=== PATIENT | male | born 1965 | race Caucasian/White ===

== ENCOUNTER 2018-07-27 13:40 | Observation (INO) ==
[2018-07-27 14:23] LABS: Microscopic, Urine URINE MICROSCOPIC (MICROSCOPIC)
[2018-07-27 15:12] LABS: Basophils % 0.4 % (0.1-2.0); Eosinophils % 0.1 % (0.1-12.0); Hematocrit 52.6 % (42.0-52.0); Hemoglobin 17.7 g/dL (14.1-18.0); Lymphocytes # 1.1 K/mm3 (0.7-4.5); Lymphocytes % 15.4 % (10-50); Mean Corpuscular HGB Conc 33.6 g/dL (31.8-35.4); Mean Corpuscular Hemoglobin 29.3 pg (27.0-31.2); Mean Corpuscular Volume 87.2 fl (80-94); Mean Platelet Volume 7.5 fl (7.4-10.4); Monocytes # 0.4 K/mm3 (0.1-1.0); Monocytes % 5.1 % (1.7-9.3); Neutrophils # 5.6 K/mm3 (1.8-7.8); Neutrophils % 78.9 % (37.0-80.0); Platelet Count 258 K/mm3 (142-424); Red Blood Count 6.03 M/mm3 (4.60-6.20); Red Cell Distribution Width 13.9 % (11.5-17.5); White Blood Count 7.1 K/mm3 (4.8-10.8)
[2018-07-27 15:13] LABS: Appearance,Urine CLEAR (Clear); Blood, Urine TRACE-L (Negative); Color,Urine DK YELLOW (Yellow); Glucose,Urine (UA) Negative (Negative); Ketones,Urine TRACE (Negative); Leukocyte Esterase,Urine Negative (Negative); Protein,Urine 2+ (Negative); Specific Gravity, Urine 1.025 (1.005-1.030)
[2018-07-27 15:24] LABS: Alanine Aminotransferase 247 U/L (12-78); Albumin/Globulin Ratio 0.6 (1.1-1.8); Alkaline Phosphatase 296 U/L (46-116); Amylase 47 U/L (25-115); Anion Gap 13.1 mEq/L (5-15); Aspartate Amino Transferase 155 U/L (15-37); Blood Urea Nitrogen 10 mg/dL (7-18); Calcium 8.7 mg/dL (8.5-10.1); Carbon Dioxide 27 mmol/L (21.0-32.0); Chloride 98 mmol/L (98-107); Glucose 98 mg/dL (74-106); Lipase 118 u/L (73-393); Potassium 3.1 mmoL/L (3.5-5.1); Sodium 135 mmol/L (136-145)
[2018-07-27 15:28] LABS: Bilirubin,Urine Negative (Negative)
[2018-07-27 15:30] LABS: Bacteria,Urine Trace /lpf; RBC,Urine Occasional #/hpf (0-3); Squamous Epithelial Cell,Urine Occasional #/hpf (0-5)
[2018-07-27 17:36] LABS: INR 1.04 (0.9-1.1); Prothrombin Time 10.7 seconds (9.4-11.8)
--- NOTE | 2018-07-27 21:31 | History & Physical Report ---
*Admission Date: 07/27/18 *Chief complaint: fever, chills, right-sided abdominal pain *History of present illness: 52 yr old male presented to outpatient clinic today with complaints of fever, body aches, chills and right upper abdominal pain for approximately 4 days. Poor appetite and mild nausea but no vomiting, diarrhea, constipation or urinary symptoms. Denies respiratory symptoms but was concerned about possible influenza. Rapid influenza testing was negative but he was clammy, tachycardic and had right upper and mid-abdominal pain so was sent for gallbaldder US and labs. Labs revealed transaminitis, mild hyponatremia and hypokalemia, US with gallbladder wall thickening and sludge. Admitted for IV hydration, additional testing and possible surgical consultation. [facility] History I have reviewed the patient's past medical history: Yes Medical History: Reports:: Anxiety, Depression, Gall Bladder Disease (known sludge in the past), Hyperlipidemia Denies:: Cancer, Diabetes Mellitus Type 1, Diabetes Mellitus Type 2, MRSA *Have you ever received a pneumonia vaccine?: No *Have you received a flu vaccine this season?: No Other Medical History: Reports: Cataracts Other Surgeries: Yes: Other (bone cyst) Amputation: No Fractures: No - *Social History Educational Level: Attended [employer] Smoking Status: Never smoker Alcohol Intake: never *Occupational Status:: employed Housing: house Household Members: spouse, children *Travel in the last 8 weeks: None - Psychiatric History Expresses thoughts of harming self/others: None Suicide Plan Description: No Plan Pschychiatric History:: Reports:: Anxiety (controlled on paxil), Depression Family Hx:: Coronary Artery Disease, Heart Attack, Hyperlipidemia, Hypertension, Stroke, Thyroid Disorder, Tuberculosis Review of Systems - Review of Systems Review of systems:: pertinent systems reviewed and negative unless documented below - Constitutional Reports anorexia, Reports body ache(s), Reports chills, Reports fever(s) - Eyes Denies change in vision - ENT Denies difficulty swallowing, Denies ear pain, Denies sinus pressure, Denies sore throat - *Cardiovascular Denies chest pain, Denies shortness of breath - *Respiratory Denies cough - *Gastrointestinal Reports abdominal pain, Reports belching, Reports nausea, Denies change in bowel habits, Denies constipation, Denies loose stools, Denies heartburn, Denies vomiting blood, Denies vomiting - *Genitourinary Denies difficulty urinating - *Musculoskeletal Reports joint pain - Integumentary/Breasts Denies rash - *Neurologic Denies dizziness, Denies localized weakness, Denies frequent falls - Psychiatric Reports depression (controlled on medication) - Endocrine Denies cold intolerance - Hematologic/Lymphatic Denies easy bleeding Meds Home Medications Medication Instructions Recorded Confirmed Type Cholecalciferol (Vitamin D3) 50,000 unit PO MOFR 07/28/18 07/28/18 History [Vitamin D3 50,000 unit Cap] Loratadine [Allergy] 10 mg PO DAILY 07/28/18 07/28/18 History Niacin [Niacin ER] 1,000 mg PO DAILY 07/28/18 07/28/18 History PARoxetine HCl [Paxil] 20 mg PO DAILY 07/28/18 07/28/18 History Allergies Allergy/AdvReac Type Severity Reaction Status Date / Time Penicillins AdvReac Verified 07/27/18 18:43 Exam Vital signs and Labs for Last 24 Hours: Temp Pulse Resp BP Pulse Ox 98.5 F 108 H 18 140/79 94 L 07/27/18 20:00 07/27/18 20:00 07/27/18 20:00 07/27/18 20:00 07/27/18 20:00 Laboratory Results - last 24 hr 07/27/18 14:21: Sodium 135 L, Potassium 3.1 L, Chloride 98, Carbon Dioxide 27, Anion Gap 13.1, BUN 10, Creatinine 1.15, Estimated GFR 66, Est GFR ( Amer) 80, Glucose 98, Calcium 8.7, Total Bilirubin 1.0, AST 155 H, ALT 247 H, Alkaline Phosphatase 296 H, Total Protein 8.0, Albumin 3.0 L, Globulin 5.0 H, Albumin/Globulin Ratio 0.6 L, Amylase 47, Lipase 118 07/27/18 14:21: WBC 7.1, RBC 6.03, Hgb 17.7, Hct 52.6 H, MCV 87.2, MCH 29.3, MCHC 33.6, RDW 13.9, Plt Count 258, MPV 7.5, Neut % (Auto) 78.9, Lymph % (Auto) 15.4, [place] % (Auto) 5.1, Eos % (Auto) 0.1, Baso % (Auto) 0.4, Neut # (Auto) 5.6, Lymph # (Auto) 1.1, [place] # (Auto) 0.4, Eos # (Auto) 0.0, Baso # (Auto) 0.0 07/27/18 14:21: Urine Color Dk yellow, Urine Appearance Clear, Urine pH 6.0, Ur Specific [place] 1.025, Urine Protein 2+, Urine Glucose (UA) Negative, Urine Ketones Trace, Urine Blood Trace-l, Urine Nitrate Negative, Urine Bilirubin Negative, Urine Urobilinogen 1.0, Ur Leukocyte Esterase Negative, Urine RBC Occasional, Urine WBC 3-5, Ur Squamous Epith Cells Occasional, Urine Bacteria Trace 07/27/18 16:27: PT 10.7, INR 1.04 I & O for Last 24 hours: Intake & Output 07/25/18 07/26/18 07/27/18 07/28/18 11:59 11:59 11:59 11:59 Weight 208 lb 8 oz - Constitutional mild distress, diaphoretic, cooperative - *Routine HEENT Exam Head: Present: normocephalic Eye: Present: conjunctivae pink ENT: Present: mucous membranes moist, oropharynx clear, nares patent, TM's clear bilaterally - *Routine Neck Exam Present: supple. Absent: lymphadenopathy - *Routine Respiratory Exam Present: CTA bilaterally - *Routine Cardiovascular Exam Present: RRR. Absent: murmur - *Routine Abdominal Exam Present: soft, normoactive bowel sounds, tenderness (right upper and mid- abdomen). Absent: rebound, guarding, mass - *Routine Extremities Exam Present: full ROM, normal capillary refill. Absent: edema - *Routine Skin Exam Present: warm. Absent: rash - *Routine Neurological Exam Present: oriented X3, moving all extremities Assessment and Plan (1) Transaminitis Current visit: Yes Status: Acute Category: Medical Code(s): R74.0 - Nonspecific elevation of levels of transaminase and lactic acid dehydrogenase [LDH] (2) Hypokalemia Current visit: Yes Status: Acute Category: Medical Code(s): E87.6 - Hypokalemia (3) Hyponatremia Current visit: Yes Status: Acute Category: Medical Code(s): E87.1 - Hypo-osmolality and hyponatremia (4) Febrile illness, acute Current visit: Yes Status: Acute Category: Medical Code(s): R50.9 - Fever, unspecified - Assessment and plan all Dx Assessment and Plan for all problems:: suspect acute cholecystitis but waiting on CT imaging to rule-out other possible pathology. Plan to consult general surgery, IV Invanz every 24 hours, blood cultures pending. Hepatitis A and chronic hepaitis panel also pending. IV hydration with replacement of potassium overnight.
[2018-07-28 06:37] LABS: Albumin Level 2.6 gm/dL (3.4-5.0); Albumin/Globulin Ratio 0.6 (1.1-1.8); Anion Gap 14.5 mEq/L (5-15); Bilirubin,Total 0.7 mg/dL (0.2-1.0); Calcium 8.5 mg/dL (8.5-10.1); Chol/HDL Ratio 7.1 (1-3.5); Globulin 4.6 gm/dl (1.3-3.2); Potassium 3.5 mmoL/L (3.5-5.1); Total Protein,Serum 7.2 gm/dL (6.4-8.2)
[2018-07-28 07:11] LABS: Basophils % 0.1 % (0.1-2.0); Eosinophils % 0.1 % (0.1-12.0); Hematocrit 48.3 % (42.0-52.0); Lymphocytes # 0.9 K/mm3 (0.7-4.5); Lymphocytes % 14.2 % (10-50); Mean Corpuscular HGB Conc 32.8 g/dL (31.8-35.4); Mean Corpuscular Hemoglobin 29.4 pg (27.0-31.2); Mean Corpuscular Volume 89.8 fl (80-94); Mean Platelet Volume 8.2 fl (7.4-10.4); Monocytes # 0.4 K/mm3 (0.1-1.0); Neutrophils # 4.8 K/mm3 (1.8-7.8); Neutrophils % 78.6 % (37.0-80.0); Platelet Count 221 K/mm3 (142-424); Red Blood Count 5.38 M/mm3 (4.60-6.20); Red Cell Distribution Width 13.7 % (11.5-17.5)
[2018-07-28 07:22] LABS: Hemoglobin 15.8 g/dL (14.1-18.0)
--- NOTE | 2018-07-28 07:38 | Pharmacy Consult Notes ---
[facility] Pharmacy VTE Monitoring - Patient Demographics Admission date: 07/27/18 Report Date: 07/28/18 Time: 07:38 Allergies/Adverse Reactions: Patient Allergies Penicillins Adverse Reaction (Verified 07/27/18 18:43) Height: 1.83 m Weight: 94.574 kg Patient Problems: Current Active Problems Transaminitis (Acute) Hypokalemia (Acute) Hyponatremia (Acute) Febrile illness, acute (Acute) - VTE Risk Labs: VTE Related Lab Results Hgb 15.8 g/dL (14.1-18.0) D 07/28/18 06:05 Hct 48.3 % (42.0-52.0) 07/28/18 06:05 Plt Count 221 K/mm3 (142-424) 07/28/18 06:05 PT 10.7 seconds (9.4-11.8) 07/27/18 16:27 INR 1.04 (0.9-1.1) 07/27/18 16:27 BUN 9 mg/dL (7-18) 07/28/18 06:05 Creatinine 1.01 mg/dL (0.70-1.30) 07/28/18 06:05 Estimated Creat Clear 112 mL/min (50-200) 07/28/18 06:05 Was VTE Risk Assessment Performed: Yes VTE Score: 1 VTE Risk Level: Very Low Risk - Prophylaxis VTE Prophylaxis Ordered?: Yes Types of VTE Prophylaxis: TEDS Knee High Location of Applied Device: Bilateral Lower Extremeties - VTE Diagnosis Confirmed Treatment or plan recommended: Continue Current Treatment
--- NOTE | 2018-07-28 09:25 | Progress Note ---
Internal Medicine - PN: Subj *Date: 07/28/18 *Time: 08:00 Interval history: Patient is sitting up in bed, abdominal pain as improved. No vomiting through the night, has had multiple episodes of diarrhea. Alert and oriented x3. S1, S2, no murmur. Lung sounds clear and equal. Abdomen, soft, mild distended with RLQ tenderness, no rebound or guarding. No LE edema Exam Vital signs and Labs for Last 24 Hours: Temp Pulse Resp BP Pulse Ox 98.7 F 109 H 18 141/90 H 94 L 07/28/18 07:49 07/28/18 07:49 07/28/18 07:49 07/28/18 07:49 07/28/18 07:49 Laboratory Results - last 24 hr 07/27/18 14:21: Sodium 135 L, Potassium 3.1 L, Chloride 98, Carbon Dioxide 27, Anion Gap 13.1, BUN 10, Creatinine 1.15, Estimated GFR 66, Est GFR ( Amer) 80, Glucose 98, Calcium 8.7, Total Bilirubin 1.0, AST 155 H, ALT 247 H, Alkaline Phosphatase 296 H, Total Protein 8.0, Albumin 3.0 L, Globulin 5.0 H, Albumin/Globulin Ratio 0.6 L, Amylase 47, Lipase 118 07/27/18 14:21: WBC 7.1, RBC 6.03, Hgb 17.7, Hct 52.6 H, MCV 87.2, MCH 29.3, MCHC 33.6, RDW 13.9, Plt Count 258, MPV 7.5, Neut % (Auto) 78.9, Lymph % (Auto) 15.4, [place] % (Auto) 5.1, Eos % (Auto) 0.1, Baso % (Auto) 0.4, Neut # (Auto) 5.6, Lymph # (Auto) 1.1, [place] # (Auto) 0.4, Eos # (Auto) 0.0, Baso # (Auto) 0.0 07/27/18 14:21: Urine Color Dk yellow, Urine Appearance Clear, Urine pH 6.0, Ur Specific [place] 1.025, Urine Protein 2+, Urine Glucose (UA) Negative, Urine Ketones Trace, Urine Blood Trace-l, Urine Nitrate Negative, Urine Bilirubin Negative, Urine Urobilinogen 1.0, Ur Leukocyte Esterase Negative, Urine RBC Occasional, Urine WBC 3-5, Ur Squamous Epith Cells Occasional, Urine Bacteria Trace 07/27/18 16:27: PT 10.7, INR 1.04 07/28/18 06:05: WBC 6.0, RBC 5.38, Hgb 15.8 D, Hct 48.3, MCV 89.8, MCH 29.4, MCHC 32.8, RDW 13.7, Plt Count 221, MPV 8.2, Neut % (Auto) 78.6, Lymph % (Auto) 14.2, [place] % (Auto) 7.0, Eos % (Auto) 0.1, Baso % (Auto) 0.1, Neut # (Auto) 4.8, Lymph # (Auto) 0.9, [place] # (Auto) 0.4, Eos # (Auto) 0.0, Baso # (Auto) 0.0 07/28/18 06:05: Sodium 135 L, Potassium 3.5, Chloride 99, Carbon Dioxide 25, Anion Gap 14.5, BUN 9, Creatinine 1.01, Estimated Creat Clear 112, Estimated GFR 77, Est GFR ( Amer) 93, Glucose 136 H D, Calcium 8.5, Total Bilirubin 0.7, AST 107 H D, ALT 203 H, Alkaline Phosphatase 276 H, Total Protein 7.2, Albumin 2.6 L D, Globulin 4.6 H, Albumin/Globulin Ratio 0.6 L, Triglycerides 213 H, Cholesterol 226 H, LDL Cholesterol 151 H, VLDL Cholesterol 43 H, HDL Cholesterol 32, Cholesterol/HDL Ratio 7.1 H I & O for Last 24 hours: Intake & Output 07/25/18 07/26/18 07/27/18 07/28/18 11:59 11:59 11:59 11:59 Intake Total 1193 / 1193 Balance 1193 / 1193 Weight 208 lb 8 oz Assessment and Plan (1) Transaminitis Current visit: Yes Status: Acute Category: Medical Code(s): R74.0 - Nonspecific elevation of levels of transaminase and lactic acid dehydrogenase [LDH] (2) Hypokalemia Current visit: Yes Status: Acute Category: Medical Code(s): E87.6 - Hypokalemia (3) Hyponatremia Current visit: Yes Status: Acute Category: Medical Code(s): E87.1 - Hypo- osmolality and hyponatremia (4) Febrile illness, acute Current visit: Yes Status: Acute Category: Medical Code(s): R50.9 - Fever, unspecified (5) Colitis Current visit: Yes Status: Acute Category: Medical Code(s): K52.9 - Noninfective gastroenteritis and colitis, unspecified - Assessment and plan all Dx Assessment and Plan for all problems:: Transaminitis is improving. CT showed colitis which is more consistent with his symptoms today. Add flagyl. Obtain diarrhea PCR. Consult surgery
--- NOTE | 2018-07-28 14:05 | Consult Report ---
*Admission Date: 07/27/18 *History of present illness: This is a 52-year-old gentleman seen in consultation from his primary service fo r evaluation regarding possible cholecystitis. Please see HPI from admission H&P forwarded below: 52 yr old male presented to outpatient clinic today with complaints of fever, body aches, chills and right upper abdominal pain for approximately 4 days. Poor appetite and mild nausea but no vomiting, diarrhea, constipation or urinary symptoms. Denies respiratory symptoms but was concerned about possible influenza. Rapid influenza testing was negative but he was clammy, tachycardic and had right upper and mid-abdominal pain so was sent for gallbaldder US and labs. Labs revealed transaminitis, mild hyponatremia and hypokalemia, US with gallbladder wall thickening and sludge. Admitted for IV hydration, additional testing and possible surgical consultation. Note: Currently, the patient feels better. Diarrhea panel reveals Campylobacter. He states that his pain was somewhat in the mid and upper abdomen (R>L). He also states that he did have some pain in the right lower quadrant. Review of Systems - Constitutional Denies chills - Eyes Denies change in vision - *Cardiovascular Denies chest pain - *Respiratory Denies cough - *Gastrointestinal Reports abdominal pain, Reports change in stools, Denies vomiting blood, Denies bright, red blood in stools - *Neurologic Denies dizziness, Denies localized weakness, Denies frequent falls [facility] History Medical History: Reports:: Anxiety (controlled on paxil), Depression, Gall Bladder Disease (known sludge in the past), Hyperlipidemia Denies:: Cancer, Diabetes Mellitus Type 1, Diabetes Mellitus Type 2, MRSA *Have you ever received a pneumonia vaccine?: No *Have you received a flu vaccine this season?: No Other Medical History: Reports: Cataracts Other Surgeries: Yes: Other (bone cyst) Amputation: No Fractures: No - *Social History Educational Level: Attended [employer] Smoking Status: Never smoker Alcohol Intake: never *Occupational Status:: employed Housing: house Household Members: spouse, children *Travel in the last 8 weeks: None - Psychiatric History Expresses thoughts of harming self/others: None Suicide Plan Description: No Plan Pschychiatric History:: Reports:: Anxiety (controlled on paxil), Depression Family Hx:: Coronary Artery Disease, Heart Attack, Hyperlipidemia, Hypertension, Stroke, Thyroid Disorder, Tuberculosis Meds Home Medications Medication Instructions Recorded Confirmed Type Cholecalciferol (Vitamin D3) 50,000 unit PO MOFR 07/28/18 07/28/18 History [Vitamin D3 50,000 unit Cap] Loratadine [Allergy] 10 mg PO DAILY 07/28/18 07/28/18 History Niacin [Niacin ER] 1,000 mg PO DAILY 07/28/18 07/28/18 History PARoxetine HCl [Paxil] 20 mg PO DAILY 07/28/18 07/28/18 History Allergies Allergy/AdvReac Type Severity Reaction Status Date / Time Penicillins AdvReac Verified 07/27/18 18:43 Exam Vital signs and Labs for Last 24 Hours: Temp Pulse Resp BP Pulse Ox 98.7 F 109 H 18 141/90 H 94 L 07/28/18 07:49 07/28/18 07:49 07/28/18 07:49 07/28/18 07:49 07/28/18 07:49 Laboratory Results - last 24 hr 07/27/18 14:21: Sodium 135 L, Potassium 3.1 L, Chloride 98, Carbon Dioxide 27, Anion Gap 13.1, BUN 10, Creatinine 1.15, Estimated GFR 66, Est GFR ( Amer) 80, Glucose 98, Calcium 8.7, Total Bilirubin 1.0, AST 155 H, ALT 247 H, Alkaline Phosphatase 296 H, Total Protein 8.0, Albumin 3.0 L, Globulin 5.0 H, Albumin/Globulin Ratio 0.6 L, Amylase 47, Lipase 118 07/27/18 14:21: WBC 7.1, RBC 6.03, Hgb 17.7, Hct 52.6 H, MCV 87.2, MCH 29.3, MCHC 33.6, RDW 13.9, Plt Count 258, MPV 7.5, Neut % (Auto) 78.9, Lymph % (Auto) 15.4, [place] % (Auto) 5.1, Eos % (Auto) 0.1, Baso % (Auto) 0.4, Neut # (Auto) 5.6, Lymph # (Auto) 1.1, [place] # (Auto) 0.4, Eos # (Auto) 0.0, Baso # (Auto) 0.0 07/27/18 14:21: Urine Color Dk yellow, Urine Appearance Clear, Urine pH 6.0, Ur Specific [place] 1.025, Urine Protein 2+, Urine Glucose (UA) Negative, Urine Ketones Trace, Urine Blood Trace-l, Urine Nitrate Negative, Urine Bilirubin Negative, Urine Urobilinogen 1.0, Ur Leukocyte Esterase Negative, Urine RBC Occ asional, Urine WBC 3-5, Ur Squamous Epith Cells Occasional, Urine Bacteria Trace 07/27/18 16:27: PT 10.7, INR 1.04 07/28/18 06:05: WBC 6.0, RBC 5.38, Hgb 15.8 D, Hct 48.3, MCV 89.8, MCH 29.4, MCHC 32.8, RDW 13.7, Plt Count 221, MPV 8.2, Neut % (Auto) 78.6, Lymph % (Auto) 14.2, [place] % (Auto) 7.0, Eos % (Auto) 0.1, Baso % (Auto) 0.1, Neut # (Auto) 4.8, Lymph # (Auto) 0.9, [place] # (Auto) 0.4, Eos # (Auto) 0.0, Baso # (Auto) 0.0 07/28/18 06:05: Sodium 135 L, Potassium 3.5, Chloride 99, Carbon Dioxide 25, Anion Gap 14.5, BUN 9, Creatinine 1.01, Estimated Creat Clear 112, Estimated GFR 77, Est GFR ( Amer) 93, Glucose 136 H D, Calcium 8.5, Total Bilirubin 0.7, AST 107 H D, ALT 203 H, Alkaline Phosphatase 276 H, Total Protein 7.2, Albumin 2.6 L D, Globulin 4.6 H, Albumin/Globulin Ratio 0.6 L, Triglycerides 213 H, Cholesterol 226 H, LDL Cholesterol 151 H, VLDL Cholesterol 43 H, HDL Cholesterol 32, Cholesterol/HDL Ratio 7.1 H 07/28/18 09:00: Stl Aeromonas (PCR) Not detected, Stl C. cayetanensis PCR Not detected, Stool Rotavirus (PCR) Not detected, Stl Adenov F 40/41 PCR Not detected, Stool Astrovirus (PCR) Not detected, Stool Campylobacter PCR Detected A, Stl C.difficile Tox PCR Not detected, Stool Cryptosporidium PCR Not detected, Stl E.coli Shiga Tox PCR Not detected, Stool E coli O157 PCR Not detected, Stl Enterotoxigenic E PCR Not detected, Stool EPEC (PCR) Not detected, Stool EAEC (PCR) Not detected, Stl E. histolytica PCR Not detected, Stool Giardia Lamblia PCR Not detected, Stool Salmonella PCR Not detected, Stool Sapovirus (PCR) Not detected, Stl P. shigelloides PCR Not detected, Stl Shigella/EIEC PCR Not detected, St Y.enterocolitica PCR Not detected, Stool Vibrio (PCR) Not detected, Stl Vibrio cholerae PCR Not detected, Stl Norovirus GI/GII PCR Not detected I & O for Last 24 hours: Intake & Output 07/26/18 07/27/18 07/28/18 07/29/18 11:59 11:59 11:59 11:59 Intake Total 1193 / 1193 Balance 1193 / 1193 Weight 208 lb 8 oz Radiology Reports for the Last 24 Hours: The patient's CT scan reveals changes consistent with colitis of the cecum/ascending colon. - Constitutional no acute distress - *Routine Respiratory Exam Absent: respiratory distress - *Routine Abdominal Exam Present: soft, tenderness Comments: mildly tender thoughout mid and upper abdomen Results - Labs 07/28/18 06:05 07/28/18 06:05 Laboratory Results - last 24 hr 07/27/18 14:21: Sodium 135 L, Potassium 3.1 L, Chloride 98, Carbon Dioxide 27, Anion Gap 13.1, BUN 10, Creatinine 1.15, Estimated GFR 66, Est GFR ( Amer) 80, Glucose 98, Calcium 8.7, Total Bilirubin 1.0, AST 155 H, ALT 247 H, Alkaline Phosphatase 296 H, Total Protein 8.0, Albumin 3.0 L, Globulin 5.0 H, Albumin/Globulin Ratio 0.6 L, Amylase 47, Lipase 118 07/27/18 14:21: WBC 7.1, RBC 6.03, Hgb 17.7, Hct 52.6 H, MCV 87.2, MCH 29.3, MCHC 33.6, RDW 13.9, Plt Count 258, MPV 7.5, Neut % (Auto) 78.9, Lymph % (Auto) 15.4, [place] % (Auto) 5.1, Eos % (Auto) 0.1, Baso % (Auto) 0.4, Neut # (Auto) 5.6, Lymph # (Auto) 1.1, [place] # (Auto) 0.4, Eos # (Auto) 0.0, Baso # (Auto) 0.0 07/27/18 14:21: Urine Color Dk yellow, Urine Appearance Clear, Urine pH 6.0, Ur Specific [place] 1.025, Urine Protein 2+, Urine Glucose (UA) Negative, Urine Ketones Trace, Urine Blood Trace-l, Urine Nitrate Negative, Urine Bilirubin Negative, Urine Urobilinogen 1.0, Ur Leukocyte Esterase Negative, Urine RBC Occasional, Urine WBC 3-5, Ur Squamous Epith Cells Occasional, Urine Bacteria Trace 07/27/18 16:27: PT 10.7, INR 1.04 07/28/18 06:05: WBC 6.0, RBC 5.38, Hgb 15.8 D, Hct 48.3, MCV 89.8, MCH 29.4, MCHC 32.8, RDW 13.7, Plt Count 221, MPV 8.2, Neut % (Auto) 78.6, Lymph % (Auto) 14.2, [place] % (Auto) 7.0, Eos % (Auto) 0.1, Baso % (Auto) 0.1, Neut # (Auto) 4.8, Lymph # (Auto) 0.9, [place] # (Auto) 0.4, Eos # (Auto) 0.0, Baso # (Auto) 0.0 07/28/18 06:05: Sodium 135 L, Potassium 3.5, Chloride 99, Carbon Dioxide 25, Anion Gap 14.5, BUN 9, Creatinine 1.01, Estimated Creat Clear 112, Estimated GFR 77, Est GFR ( Amer) 93, Glucose 136 H D, Calcium 8.5, Total Bilirubin 0.7, AST 107 H D, ALT 203 H, Alkaline Phosphatase 276 H, Total Protein 7.2, Albumin 2.6 L D, Globulin 4.6 H, Albumin/Globulin Ratio 0.6 L, Triglycerides 213 H, Cholesterol 226 H, LDL Cholesterol 151 H, VLDL Cholesterol 43 H, HDL Cholesterol 32, Cholesterol/HDL Ratio 7.1 H 07/28/18 09:00: Stl Aeromonas (PCR) Not detected, Stl C. cayetanensis PCR Not detected, Stool Rotavirus (PCR) Not detected, Stl Adenov F 40/41 PCR Not detected, Stool Astrovirus (PCR) Not detected, Stool Campylobacter PCR Detected A, Stl C.difficile Tox PCR Not detected, Stool Cryptosporidium PCR Not detected, Stl E.coli Shiga Tox PCR Not detected, Stool E coli O157 PCR Not detected, Stl Enterotoxigenic E PCR Not detected, Stool EPEC (PCR) Not detected, Stool EAEC (PCR) Not detected, Stl E. histolytica PCR Not detected, Stool Giardia [place]lia PCR Not detected, Stool Salmonella PCR Not detected, Stool Sapovirus (PCR) Not detected, Stl P. shigelloides PCR Not detected, Stl Shigella/EIEC PCR Not detected, St Y.enterocolitica PCR Not detected, Stool Vibrio (PCR) Not detected, Stl Vibrio cholerae PCR Not detected, Stl Norovirus GI/GII PCR Not detected - Imaging CT scan - abdomen: report reviewed, image reviewed CT scan - pelvis: report reviewed, image reviewed US - abdomen: report reviewed, image reviewed Assessment and Plan (1) Transaminitis Current visit: Yes Status: Acute Category: Medical Code(s): R74.0 - Nonspecific elevation of levels of transaminase and lactic acid dehydrogenase [LDH] (2) Hypokalemia Current visit: Yes Status: Acute Category: Medical Code(s): E87.6 - Hypokalemia (3) Hyponatremia Current visit: Yes Status: Acute Category: Medical Code(s): E87.1 - Hypo- osmolality and hyponatremia (4) Febrile illness, acute Current visit: Yes Status: Acute Category: Medical Code(s): R50.9 - Fever, unspecified (5) Colitis Current visit: Yes Status: Acute Category: Medical Code(s): K52.9 - Nonin fective gastroenteritis and colitis, unspecified Continue treatment as per primary service. (6) Abnormal ultrasound of abdomen Current visit: Yes Status: Acute Category: Medical Code(s): R93.5 - Abnormal findings on diagnostic imaging of other abdominal regions, including retroperitoneum The findings of mild gallbladder wall thickening and possible "small sludge" are most likely not indicative of acute biliary disease. Secondary inflammatory response from (proximity) right-sided colitis is seemingly more likely.
[2018-07-29 10:15] LABS: Hepatitis B Core Antibody IgM Negative (Negative); Hepatitis B Surface Antigen Negative (Negative)
--- NOTE | 2018-07-29 10:34 | Discharge Summary ---
General - General Admission date:: 07/27/18 Discharge date: 07/29/18 HPI HPI: 52 yr old male presented to outpatient clinic today with complaints of fever, body aches, chills and right upper abdominal pain for approximately 4 days. Poor appetite and mild nausea but no vomiting, diarrhea, constipation or urinary symptoms. Denies respiratory symptoms but was concerned about possible influenza. Rapid influenza testing was negative but he was clammy, tachycardic and had right upper and mid-abdominal pain so was sent for gallbaldder US and labs. Labs revealed transaminitis, mild hyponatremia and hypokalemia, US with gallbladder wall thickening and sludge. Admitted for IV hydration, additional testing and possible surgical consultation. Hospital Course Hospital Course: Patient admitted to medicine due to concern for cholecystitis. Abdominal U/S performed with no stones, biliary dilitation, or vargas sign. Pain progressed overnight with evolution to right lower quadrant pain. Surgery evaluated and determined no emergent need for cholecystectomy as Sx not from gall stone disease. Initiated on Abx and stool sample obtained due to development of diarrhea. Found to be positive for C. jejuni. Advanced diet and tolerated well. Patient clinically improved. Treated for gastroenteritis. DC'd on PO abx regimen to complete at home. Follow-up with PCP and Surgery in the coming weeks. Stable for DC home. Objective Vital signs: Temp Pulse Resp BP Pulse Ox 97.7 F 81 18 140/89 95 07/29/18 07:35 07/29/18 07:35 07/29/18 07:35 07/29/18 07:35 07/29/18 07:35 Narrative: Alert and oriented x3, NAD sitting up in bed RRR, S1, S2, no murmur Lung sounds clear and equal Abdomen, soft, non distended with interval improvement in RLQ tenderness, no rebound or guarding No LE edema Results Labs on day of discharge: Labs from last 24 hours 07/28/18 09:00 Stl Aeromonas (PCR) Not detected Stl C. cayetanensis PCR Not detected Stool Rotavirus (PCR) Not detected Stl Adenov F 40/41 PCR Not detected Stool Astrovirus (PCR) Not detected Stool Campylobacter PCR Detected A Stl C.difficile Tox PCR Not detected Stool Cryptosporidium PCR Not detected Stl E.coli Shiga Tox PCR Not detected Stool E coli O157 PCR Not detected Stl Enterotoxigenic E PCR Not detected Stool EPEC (PCR) Not detected Stool EAEC (PCR) Not detected Stl E. histolytica PCR Not detected Stool Giardia Lamblia PCR Not detected Stool Salmonella PCR Not detected Stool Sapovirus (PCR) Not detected Stl P. shigelloides PCR Not detected Stl Shigella/EIEC PCR Not detected St Y.enterocolitica PCR Not detected Stool Vibrio (PCR) Not detected Stl Vibrio cholerae PCR Not detected Stl Norovirus GI/GII PCR Not detected DS: Diagnosis - Discharge Diagnosis (1) Transaminitis Status: Acute (2) Hypokalemia Status: Acute (3) Hyponatremia Status: Acute (4) Febrile illness, acute Status: Acute Discharge Plan - Patient Discharge Instructions ACTIVITY: Continue current activity DIET: continue same diet Patient Instructions: Fat-Restricted Diet, DI for Hyperkalemia, Hyperkalemia - Follow up Plan Follow up with: Kenan Murphy MD [Primary Care Provider] - 1 week Yunior Vasquez MD [Staff Physician] - (2-3 weeks, discuss cholecystectomy) Disposition: Home, Self-[facility] Medications: Home Medications Medication Instructions Recorded Confirmed Type Cholecalciferol (Vitamin D3) 50,000 unit PO MOFR 07/28/18 07/28/18 History [Vitamin D3 50,000 unit Cap] Loratadine [Allergy] 10 mg PO DAILY 07/28/18 07/28/18 History Niacin [Niacin ER] 1,000 mg PO DAILY 07/28/18 07/28/18 History PARoxetine HCl [Paxil] 20 mg PO DAILY 07/28/18 07/28/18 History Lactobacillus Acidophilus 1 each PO BID 30 Days #60 cap 07/29/18 Rx [Probiotic] Prescriptions/Medication Reconciliation: New Lactobacillus Acidophilus [Probiotic] 1 each PO BID 30 Days #60 cap Continue Niacin [Niacin ER] 1,000 mg PO DAILY PARoxetine HCl [Paxil] 20 mg PO DAILY Cholecalciferol (Vitamin D3) [Vitamin D3 50,000 unit Cap] 50,000 unit PO MOFR Loratadine [Allergy] 10 mg PO DAILY
[2018-07-29 12:34] LABS: Hepatitis C Antibody <0.1 s/co ratio (0.0-0.9)
== END 2018-07-29 13:18 | disposition home or self-care (01) ==
LOC: RAD 13:40 → 2ND 13:40
PROVIDERS: ADMIT Internal Medicine Adolescent Medicine; ATTEND Internal Medicine Adolescent Medicine
CPT/HCPCS: 36415; 74177; 76705; 80053; 80061; 80074; 81001; 82150; 83690; 85025; 85610; 87040; 87507; G0378; J1335; J2405; Q9967

== ENCOUNTER → 2019-12-26 17:17 | Outpatient (CLI) | payer BC, SELFPAY ==
[2019-12-26 18:03] LABS: Basophils # 0.1 K/mm3 (0-0.2); Eosinophils # 0.1 K/mm3 (0.0-0.4); Eosinophils % 2.6 % (0.1-12.0); Hematocrit 51.3 % (42.0-52.0); Lymphocytes # 1.4 K/mm3 (0.7-4.5); Lymphocytes % 25.5 % (10-50); Mean Corpuscular Hemoglobin 30.5 pg (27.0-31.2); Mean Corpuscular Volume 87.2 fl (80-94); Monocytes # 0.3 K/mm3 (0.1-1.0); Monocytes % 6.2 % (1.7-9.3); Neutrophils # 3.6 K/mm3 (1.8-7.8); Neutrophils % 64.7 % (37.0-80.0); Platelet Count 317 K/mm3 (142-424); Red Blood Count 5.89 M/mm3 (4.60-6.20); Red Cell Distribution Width 13.7 % (11.5-17.5); White Blood Count 5.5 K/mm3 (4.8-10.8)
[2019-12-26 18:17] LABS: Alanine Aminotransferase 38 U/L (12-78); Albumin Level 4.1 g/dl (3.5-5.0); Albumin/Globulin Ratio 1.2 (1.1-1.8); Alkaline Phosphatase 164 U/L (38-126); Anion Gap 13.9 mEq/L (5-15); Aspartate Amino Transferase 37 U/L (17-59); Bilirubin,Total 0.6 mg/dl (0.2-1.3); Blood Urea Nitrogen 16 mg/dl (9-20); Calcium 9.8 mg/dl (8.4-10.2); Carbon Dioxide 23 mmol/L (22.0-30.0); Chloride 106 mmol/L (98-107); Chol/HDL Ratio 8.6 (1-3.5); Cholesterol 293 mg/dl (140-200); Estimated Glomerular Filt Rate 100 ml/min (>60); GFR (African American) 121 ML/MIN (>60); Globulin 3.5 g/dL (1.3-3.2); Glucose 119 mg/dl (74-100); HDL Cholesterol 34 mg/dl (40-60); Potassium 3.9 mmoL/L (3.5-5.1); Sodium 139 mmol/L (136-145); Total Protein,Serum 7.6 g/dl (6.3-8.2)
[2019-12-26 18:28] LABS: Direct LDL Cholesterol 104.75 mg/dL (100-129)
[2019-12-26 18:30] LABS: Triglycerides 815 mg/dl (30-150)
[2019-12-26 18:34] LABS: 25-OH Vitamin D, Total 25.6 ng/mL (30-100)
[2019-12-26 18:37] LABS: T4 (Thyroxine) 8.5 ug/dl (5.53-11.0)
[2019-12-26 18:51] LABS: Prostate Specific Ag Screen 0.7 ng/ml (0.0-4.0); Thyroid Stimulating Hormone 0.95 uIU/mL (0.465-4.68)
[2019-12-27 18:37] LABS: Hemoglobin A1C 5.4 % (4.0-6.0)
== END ==
PROVIDERS: Visit Provider Physician Assistant
DX: I10 Essential (primary) hypertension (principal); Z12.5 Encounter for screening for malignant neoplasm of prostate; E11.9 Type 2 diabetes mellitus without complications; E55.9 Vitamin D deficiency, unspecified
CPT/HCPCS: 80053; 80061; 82306; 83036; 84436; 84443; 85025; G0103

== ENCOUNTER → 2020-01-11 17:50 | Outpatient (CLI) | payer BC, SELFPAY ==
[2020-01-17 13:02] LABS: Testosterone, Total, LC/MS 157.1 ng/dL (264.0-916.0)
== END ==
PROVIDERS: Visit Provider Physician Assistant
DX: I10 Essential (primary) hypertension (principal)
CPT/HCPCS: 84403

== ENCOUNTER → 2020-01-30 10:11 | Outpatient (CLI) | payer BC, SELFPAY ==
[2020-02-01 06:52] LABS: Estradiol 11.8 pg/mL (7.6-42.6)
== END ==
PROVIDERS: Visit Provider Urology
DX: E34.9 Endocrine disorder, unspecified (principal)
CPT/HCPCS: 36415; 82670; 84402; 84403

== ENCOUNTER 2023-03-23 09:17 | Emergency (ER) | payer BC, SELFPAY ==
[2023-03-23 09:18] VITALS: BP 171/104; PULSE 85; RESP 18; TEMP 36.4; O2SAT 98; BMI 25.7
--- NOTE | 2023-03-23 09:27 | CT_ITS ---
FINAL REPORT CLINICAL HISTORY: left flank/groin pain COMPARISON: None FINDINGS: Axial CT images of the abdomen and pelvis were obtained without intravenous contrast. Coronal and sagittal reformatted images were also obtained.This study was performed with techniques to keep radiation doses as low as reasonably achievable (ALARA). Individualized dose reduction techniques using automated exposure control or adjustment of mA and/or kV according to the patient's size were employed. Abdomen: Mild bibasilar atelectasis is present. There is a 5 mm nodule in the right lateral lung base. There is mild left hydronephrosis and hydroureter. The right kidney is unremarkable in appearance. The liver, spleen and pancreas have an unremarkable, unenhanced appearance. No mass or adenopathy is seen. No inflammatory process is identified. There is a small umbilical hernia containing fat. Pelvis: Images of the pelvis reveal there is a 2 mm left ureterovesicular junction stone present. Mild left hydroureter is present as well. Bilateral inguinal hernias are present containing fat. There are several gluteal subcutaneous nodules, that are nonspecific but may represent small sebaceous cysts. The appendix is normal in appearance. No mass or abnormal fluid collection is identified. IMPRESSION: 2 mm left ureterovesicular stone causing mild left hydronephrosis and hydroureter. 5 mm nodule right lateral lung base, would recommend follow-up CT in 6 to 12 months to determine stability. Reviewed, Interpreted and Dictated by Coy Mejia III, MD Transcribed by Emma Blum Authenticated and [facility]
--- NOTE | 2023-03-23 09:29 | HMH.EDGENADL ---
Discharge Plan Disposition Patient Disposition: Home, Self-Care Prescriptions Prescriptions: New tamsulosin 0.4 mg capsule 0.4 mg PO DAILY Qty: 14 0RF ondansetron HCl 4 mg tablet 4 mg PO Q8H PRN (Reason: nausea and vomiting) 5 Days Qty: 30 0RF No Action azithromycin 500 mg tablet 500 mg PO DAILY Qty: 7 0RF paroxetine HCl 20 mg tablet See Rx Instructions .ROUTE .COMPLEX Qty: 90 0RF Dose Instruction: TAKE 1 TABLET BY MOUTH ONCE DAILY FOR DEPRESSION Rx Instructions: TAKE 1 TABLET BY MOUTH ONCE DAILY FOR DEPRESSION Referrals Follow up/Referrals: Brady Samano MD [Primary Care Provider] - See instructions Activity Restrictions/Add. Instructions Additional Instructions/Restrictions: You have a small stone in your ureter, it will almost certainly pass on its own. Please take Zofran as needed for nausea and vomiting. Please take Tylenol and ibuprofen as needed for pain. Please take tamsulosin as it may help the stone pass. Please follow-up with your primary care provider. Please return to the emergency department if you develop any new or worsening symptoms or become concerned for your health. Clinical Impressions Clinical Impression: Hydronephrosis concurrent with and due to calculi of kidney and ureter Instructions Patient Instructions: DI for Low Back Pain Discharge ED Provider: Trae Bauer General Adult HPI General Chief complaint: Back Pain/Injury Stated complaint: KIDNEY STONE Time Seen by Provider: 03/23/23 09:20 History of Present Illness HPI narrative: 57-year-old male, history of hypertension presents with cute onset left flank pain, now with groin pain, started approximately 6 hours ago. Pain is intermittent, improved with walking around, associated with significant vomiting. He reports history of 1 prior kidney stone approximately 20 years ago that did not require intervention. He denies any recent fever or illness or any current urinary symptoms. Related Data Previous Rx's Medication Instructions Recorded azithromycin 500 mg tablet 500 mg PO DAILY #7 tabs 08/31/22 paroxetine HCl 20 mg tablet See Rx Instructions .Route 01/20/23 .COMPLEX #90 tabs ondansetron HCl 4 mg tablet 4 mg PO Q8H PRN nausea and 03/23/23 vomiting 5 days #30 tabs tamsulosin 0.4 mg capsule 0.4 mg PO DAILY #14 caps 03/23/23 Allergies Allergy/AdvReac Type Severity Reaction Status Date / Time lisinopril AdvReac Mild cough Verified 03/10/22 11:30 Penicillins AdvReac Verified 03/10/22 11:30 PFSH PFS Disclaimer: The information contained in this section may have been updated after the patient was seen, as this information can be updated by other users. Medical History Anxiety and depression Surgical History H/O shoulder surgery History of cataract surgery Social History Smoking Status: Never smoker alcohol intake: never substance use type: denies use current occupational status: employed Travel in the last 8 weeks: None household members: spouse and children housing: house ROS Obtained: Yes All systems reviewed & no additional complaints except as documented Physical Exam General General appearance: alert and in no apparent distress Head Head exam: atraumatic and normocephalic Eye Eye exam: Present normal appearance, PERRL and EOMI ENT ENT exam: Present normal oropharynx and normal external ear exam Neck Neck exam: Present normal inspection and full ROM Chest Chest inspection: Present normal inspection and symmetric chest wall rise; Absent tenderness Respiratory Respiratory exam: Present normal lung sounds bilaterally; Absent respiratory distress Cardiovascular Cardiovascular exam: Present regular rate and normal rhythm Abdominal Exam Abdominal exam: Present soft; Absent distention, tenderness or gu
[2023-03-23 09:35] LABS: Microscopic, Urine URINE MICROSCOPIC (MICROSCOPIC)
[2023-03-23 09:37] LABS: Appearance,Urine CLEAR (Clear); Bilirubin,Urine Negative (Negative); Blood, Urine 3+ (Negative); Glucose,Urine (UA) Negative (Negative); Ketones,Urine 2+ (Negative); Leukocyte Esterase,Urine Negative (Negative); Nitrate,Urine Negative (Negative); PH,Urine 5.5 (5.0-8.5); Protein,Urine Negative (Negative); Specific Gravity, Urine >= 1.030 (1.005-1.030); Urobilinogen,Urine 0.2 EU/dl (0.2)
[2023-03-23 09:40] LABS: Color,Urine Dark Yellow (Yellow)
[2023-03-23 09:49] LABS: Squamous Epithelial Cell,Urine Occasional #/hpf (0-5)
[2023-03-23 09:57] LABS: Chloride 103 mmol/L (98-107); Sodium 138 mmol/L (136-145)
[2023-03-23 10:00] VITALS: BP 131/82; PULSE 79; O2SAT 98
[2023-03-23 10:00] LABS: Alanine Aminotransferase 148 U/L (12-78); Albumin Level 4.4 g/dl (3.5-5.0); Albumin/Globulin Ratio 1.3 (1.1-1.8); Alkaline Phosphatase 187 U/L (38-126); Aspartate Amino Transferase 103 U/L (17-59); Basophils % 0.3 % (0.1-2.0); Bilirubin,Total 0.7 mg/dl (0.2-1.3); Blood Urea Nitrogen 22 mg/dl (9-20); Calcium 8.9 mg/dl (8.4-10.2); Carbon Dioxide 27 mmol/L (22.0-30.0); Eosinophils # 0.1 K/mm3 (0.0-0.4); Eosinophils % 1.2 % (0.1-12.0); Estimated Glomerular Filt Rate 86 ml/min (>60); GFR (African American) 105 ML/MIN (>60); Globulin 3.5 g/dL (1.3-3.2); Glucose 110 mg/dl (74-100); Hematocrit 51.1 % (42.0-52.0); Hemoglobin 17.9 g/dL (14.1-18.0); Lymphocytes # 0.6 K/mm3 (0.7-4.5); Lymphocytes % 7.6 % (10-50); Mean Corpuscular Hemoglobin 31.9 pg (27.0-31.2); Mean Corpuscular Volume 91.3 fl (80-94); Mean Platelet Volume 9.4 fl (7.4-10.4); Monocytes # 0.5 K/mm3 (0.1-1.0); Monocytes % 5.9 % (1.7-9.3); Neutrophils # 6.8 K/mm3 (1.8-7.8); Platelet Count 236 K/mm3 (142-424); Red Cell Distribution Width 13.6 % (11.5-17.5); Total Protein,Serum 7.9 g/dl (6.3-8.2)
[2023-03-23 10:07] LABS: MANUAL DIFFERENTIAL MANUAL DIFFERENTIAL (MANUAL DIFF)
[2023-03-23 10:30] VITALS: BP 131/83; PULSE 98; O2SAT 95
[2023-03-23 10:32] LABS: Lymphocytes % 9 % (10-50); Monocytes % 2 % (2-9); Neutrophils % 80 % (42-76); Total Cells Counted 100
[2023-03-23 10:33] LABS: Platelet Estimate Normal; RBC Morphology Normal
--- NOTE | 2023-03-23 11:18 | PC.NURSE ---
PT UPDATED AT THIS TIME, NO NEEDS AT THIS TIME
[2023-03-23 11:36] VITALS: BP 131/83; PULSE 98; RESP 18; TEMP 36.4; O2SAT 95
== END 2023-03-23 11:37 | disposition home or self-care (01) ==
PROVIDERS: Emergency Provider Emergency Medicine; PCP Family Medicine
DX: N20.0 Calculus of kidney (principal)
CPT/HCPCS: 74176; 80053; 81001; 85007; 85025; 99285

== ENCOUNTER 2023-03-28 14:04 | Emergency (ER) | payer BC, SELFPAY ==
[2023-03-28 14:06] VITALS: BP 151/95; PULSE 66; RESP 18; TEMP 36.7; O2SAT 100; BMI 25.7
--- NOTE | 2023-03-28 14:25 | PC.NURSE ---
DR ZAZUETA AT BEDSIDE
--- NOTE | 2023-03-28 15:00 | PC.NURSE ---
paged to speak with
--- NOTE | 2023-03-28 15:07 | HMH.EDGENADL ---
Discharge Plan Disposition Patient Disposition: Home, Self-Care Condition: Good Prescriptions Prescriptions: New Eliquis 5 mg tablet 5 mg PO BID 42 Days Qty: 84 0RF No Action azithromycin 500 mg tablet 500 mg PO DAILY Qty: 7 0RF paroxetine HCl 20 mg tablet See Rx Instructions .ROUTE .COMPLEX Qty: 90 0RF Dose Instruction: TAKE 1 TABLET BY MOUTH ONCE DAILY FOR DEPRESSION Rx Instructions: TAKE 1 TABLET BY MOUTH ONCE DAILY FOR DEPRESSION tamsulosin 0.4 mg capsule 0.4 mg PO DAILY Qty: 14 0RF ondansetron HCl 4 mg tablet 4 mg PO Q8H PRN (Reason: nausea and vomiting) 5 Days Qty: 30 0RF Referrals Follow up/Referrals: Brady Samano MD [Primary Care Provider] - See instructions Activity Restrictions/Add. Instructions Additional Instructions/Restrictions: You were evaluated in the emergency department today for concerns of left arm pain, redness, swelling. You have a blood clot. You are being treated with Eliquis which is a blood thinner. As we discussed, this will make it easier for you to bruise and bleed with minor injuries. It would also make it easier for you to have a head bleed so anytime you sustain a hit to the head, you must be evaluated in the ER. Apply warm compresses to the area multiple times a day and elevate the arm as well to improve symptoms. Make an appointment with your primary care physician in 2 to 3 days to discuss your blood clot and again for reevaluation with ultrasound. Call your primary care physician and say you have a blood clot in your arm and need reevaluation and ultrasound because you are being treated outpatient with blood thinners. Return to the emergency department with any new, worsening, or otherwise concerning symptoms including but not limited to chest pain, shortness of breath, or any other new, worsening, or otherwise concerning symptoms as discussed. Clinical Impressions Clinical Impression: Superficial thrombophlebitis Qualifiers: Superficial thrombophlebitis-Involved body area: upper extremity Laterality: left Qualified Code(s): I80.8 - Phlebitis and thrombophlebitis of other sites Discharge ED Provider: Christine Martin Adult [facility] General Chief complaint: Extremity Problem,Nontraumatic Stated complaint: left arm pain, no accident Time Seen by Provider: 03/28/23 14:21 Mode of Arrival: Ambulatory Source of Information: Patient Limitations: No Limitations Description of Symptoms (Recalled from ER Triage Doc. by RN): PT REPORTS LEFT ARM PAIN, REDNESS AND SWELLING. STARTED ON WEDNESDAY AFTER WORKING ON A COMBINE History of Present Illness HPI narrative: This 57-year-old male presents to the emergency department with concerns of left arm pain, redness, swelling. Patient states a couple days ago he was working on a piece of heavy equipment and kept putting pressure on/banging up the left arm. He noticed the swelling and tenderness starting to become red and states I went on [employer] and it scared me that I could have a blood clot. Patient states he has never had blood clot in the past. He was recently in the ER with kidney stone but did not have an IV placed in the left arm, all of his labs were done on the right. He does not have fevers, chills, chest pain, shortness of breath, or any other positive review of systems at this time Related Data Previous Rx's Medication Instructions Recorded azithromycin 500 mg tablet 500 mg PO DAILY #7 tabs 08/31/22 paroxetine HCl 20 mg tablet See Rx Instructions .Route 01/20/23 .COMPLEX #90 tabs ondansetron HCl 4 mg tablet 4 mg PO Q8H PRN nausea and 03/23/23 vomiting 5 days #30 tabs tamsulosin 0.4 mg capsule 0.4 mg PO DAILY #14 caps 03/23/23 apixaban 5 mg tablet (Eliquis) 5 mg PO BID 42 days #84 tabs 03/28/23 Allergies Allergy/AdvReac Type Severity Reaction Status Date / Time lisinopril AdvReac Mild cough Verified 03/10/22 11:30 Penicillins AdvReac Verified 03/10/22 11:30 [facility] Disclaimer
--- NOTE | 2023-03-28 15:21 | PC.NURSE ---
ZAZUETA AT BEDSIDE TO DISCUSS POC WITH PT AND FAMILY
[2023-03-28 15:42] VITALS: BP 149/80; PULSE 69; RESP 20; TEMP 36.7; O2SAT 100
== END 2023-03-28 15:47 | disposition home or self-care (01) ==
PROVIDERS: Emergency Provider Emergency Medicine; PCP Family Medicine
DX: I82.612 Acute embolism and thrombosis of superficial veins of left upper extremity (principal)
CPT/HCPCS: 96372; 99284

== ENCOUNTER → 2023-04-09 15:18 | Outpatient (CLI) | payer BC, SELFPAY ==
--- NOTE | 2023-04-09 15:21 | CA_ITS ---
FINAL REPORT TECHNIQUE: Graded compression, spectral analysis and ultrasound images of the venous system of the upper extremity were obtained. CLINICAL HISTORY: F/U THROMBUS LEFT BASILIAC,PT ON ELIQUS COMPARISON: None FINDINGS: There is a noncompressible segment with no flow in the distal basilic vein measuring up to 6 mm in diameter in the thrombosed segment. IMPRESSION: Residual thrombus distal basilic vein as above. Reviewed, Interpreted and Dictated by Gilmar Fields MD Transcribed by Alice Arriaga Authenticated and [facility]
== END ==
PROVIDERS: PCP Family Medicine; Visit Provider Nurse Practitioner Family
DX: I80.9 Phlebitis and thrombophlebitis of unspecified site (principal); I82.612 Acute embolism and thrombosis of superficial veins of left upper extremity
CPT/HCPCS: 93971

== ENCOUNTER 2023-07-19 14:22 | Outpatient (CLI) | payer BC, SELFPAY ==
--- NOTE | 2023-07-19 15:13 | CA_ITS ---
FINAL REPORT TECHNIQUE: Graded compression, spectral analysis and ultrasound images of the venous system of the upper extremity were obtained. CLINICAL HISTORY: THROMBUS LEFT BASILIC VEIN FINDINGS: The jugular vein, subclavian vein, axillary vein, brachial vein, cephalic vein and basilic venous system are fully compressible and demonstrate no evidence of thrombosis. IMPRESSION: No evidence of thrombosis of the venous system of the left upper extremity. Reviewed, Interpreted and Dictated by Gilmar Fields MD Transcribed by Alice Arriaga Authenticated and [facility]
== END 2023-07-19 23:59 ==
PROVIDERS: PCP Family Medicine; Visit Provider Family Medicine
DX: M79.602 Pain in left arm (principal); I80.8 Phlebitis and thrombophlebitis of other sites
CPT/HCPCS: 93971

== ENCOUNTER 2024-02-10 14:33 | Emergency (ER) | payer BC, SELFPAY ==
[2024-02-10] VITALS (9 sets, daily range): BP systolic 127–147; BP diastolic 80–97; PULSE 71–95; RESP 12–21; TEMP 36.7; O2SAT 95–98; BMI 27.8
--- NOTE | 2024-02-10 14:34 | ECG_ITS ---
APPROVED REPORT Exam: Resting ECG HR:101 bpm ECG Measurements Heart Rate 101 AXES NC 163 P 53 QRSd 92 QRS 70 QT 346 T 11 QTc 404 Conclusion Sinus tachycardia Electronically signed by : GABINO CLAY, 02/10/2024 18:47:41
--- NOTE | 2024-02-10 14:46 | XR_ITS ---
FINAL REPORT CLINICAL HISTORY: Nonspecific chest pain COMPARISON: None FINDINGS: Two views of the chest were obtained. The heart size and pulmonary vascularity are within normal limits. The mediastinum is normal. No acute pulmonary abnormality is identified. There is no pneumothorax. The bony thorax is intact. IMPRESSION: No active cardiopulmonary disease. Reviewed, Interpreted and Dictated by Coy Mejia III, MD Transcribed by Loraine Cisneros Authenticated and [facility]
--- NOTE | 2024-02-10 14:55 | PC.NURSE ---
DR CLAY AT BEDSIDE
[2024-02-10 15:00] LABS: Basophils # 0.1 K/mm3 (0-0.2); Basophils % 1.5 % (0.1-2.0); Eosinophils # 0.1 K/mm3 (0.0-0.4); Eosinophils % 2.1 % (0.1-12.0); Hematocrit 55.3 % (42.0-52.0); Lymphocytes # 1.7 K/mm3 (0.7-4.5); Lymphocytes % 31.5 % (10-50); Mean Corpuscular HGB Conc 32.5 g/dL (31.8-35.4); Mean Corpuscular Hemoglobin 29.8 pg (27.0-31.2); Mean Corpuscular Volume 91.7 fl (80-94); Mean Platelet Volume 8.8 fl (7.4-10.4); Monocytes # 0.5 K/mm3 (0.1-1.0); Monocytes % 8.6 % (1.7-9.3); Neutrophils # 3.1 K/mm3 (1.8-7.8); Neutrophils % 56.3 % (37.0-80.0); Platelet Count 320 K/mm3 (142-424); Red Blood Count 6.03 M/mm3 (4.60-6.20); Red Cell Distribution Width 13.6 % (11.5-17.5); White Blood Count 5.4 K/mm3 (4.8-10.8)
--- NOTE | 2024-02-10 15:04 | PC.NURSE ---
PT TO XR
--- NOTE | 2024-02-10 15:06 | ED_ITS ---
Discharge Plan Disposition Patient Disposition: Home, Self-Care Chief Complaint: Chest Pain Prescriptions Prescriptions: No Action prednisone 10 mg tablets,dose pack See Rx Instructions PO PER PKG DIR Qty: 21 0RF Rx Instructions: PO PER PKG DIR azithromycin 250 mg tablet See Rx Instructions PO .COMPLEX Qty: 6 0RF Rx Instructions: For 250 mg dose pack: take 500 mg today (day 1), then 250 mg for 4 days (days 2-5) PO paroxetine HCl 20 mg tablet See Rx Instructions .ROUTE .COMPLEX Qty: 90 3RF Dose Instruction: TAKE 1 TABLET BY MOUTH ONCE DAILY FOR DEPRESSION Rx Instructions: TAKE 1 TABLET BY MOUTH ONCE DAILY FOR DEPRESSION Referrals Follow up/Referrals: Provider,MD Jayjay [Primary Care Provider] - See instructions Slava Hodgson MD [Staff Physician] - See instructions Activity Restrictions/Add. Instructions Additional Instructions/Restrictions: Call your family doctor to establish care for this visit to the emergency department and schedule follow-up within 48 hours to ensure improvement. If you have any worsening of your condition or any other concerning signs or symptoms, return to the emergency department or your primary care doctor for further evaluation. Follow-up with cardiology regarding this visit to the emergency department. Clinical Impressions Clinical Impression: Chest pain Print Language Print Language: Latvian Discharge ED Provider: Jose Shukla General Chief Complaint: Chest Pain Stated Complaint: Chest Pain Time Seen by Provider: 02/10/24 14:52 Mode of Arrival: Ambulatory Source of Information: Patient Limitations: No Limitations Description of Symptoms (Recalled from ER Triage Doc. by RN): chest pain radiating to back and shoulders History of Present Illness HPI narrative: Please note that above description of symptoms, in this electronic medical record under categorization of recalled from ER triage doctor by RN are reflective of an initial nursing assessment, however, is not reflective of my full history and physical exam that was personally taken and clarified. Consequentially, this preceding description of symptoms, which may include the patient's categorized chief complaint in the EMR, do not reflect my personal clinical impression, and the ultimate description of history of present illness and patient stated complaints should be deferred to this section of the note. Unless stated otherwise or congruent with this section of the note, additional signs, symptoms, or incongruence should be interpreted as inaccurate with my clinical impression. Related Data Previous Rx's ?Medication ?Instructions ?Recorded azithromycin 250 mg tablet See Rx Instructions PO .COMPLEX #6 07/26/23 tabs prednisone 10 mg tablets in a dose See Rx Instructions PO PER PKG DIR 07/26/23 pack #21 tabs paroxetine HCl 20 mg tablet See Rx Instructions .Route 01/20/24 .COMPLEX #90 tabs Allergies Allergy/AdvReac Type Severity Reaction Status Date / Time lisinopril AdvReac Mild cough Verified 07/26/23 13:03 Penicillins AdvReac Verified 07/26/23 13:03 PFSH [facility], [facility] Disclaimer: The information contained in this section may have been updated after the patient was seen, as this information can be updated by other users. Medical History Anxiety and depression Surgical History H/O shoulder surgery History of cataract surgery Social History Smoking Status: Never smoker alcohol intake: never substance use type: denies use current occupational status: employed Travel in the last 8 weeks: None household members: spouse and children housing: house ROS Obtained: Yes All systems reviewed & no additional complaints except as documented Physical Exam General General appearance: alert Neck Neck exam: Present trachea midline Chest Chest inspection: Present normal inspection and symmetric chest wall rise Respiratory Respiratory exam: Present normal lung sounds bilaterally; Absent respiratory distress, wheezes, stridor, accessory muscle use or prolonged expiratory phase Cardiovascular Cardiovascular exam: Present regular rate, normal rhythm and other (Pulses equal and symmetric in upper and lower extremities) Extremities Exam Extremities exam: Absent edema Neurological Exam Neurological exam: Present alert, oriented X3 and CN II-XII intact Skin Skin exam: Present warm and dry; Absent cyanosis, diaphoresis or pallor HEART Score HEART Score HEART Score assessment performed?: Yes History (anamnesis): Slightly suspicious ECG: Normal Age: 45-65 years Risk factors: No known risk factors Troponin: </= normal limit HEART Score: 1 Critical Care Critical Care Time Critical Care Time: No Medical Decision Making Medical Records Medical records reviewed: Yes I reviewed the patient's medical records. Jaswinder Inquiry Pt receiving controlled substance: No Jaswinder was queried for this patient: No Vital Signs Vital Signs: 02/10/24 14:33 02/10/24 15:15 Pulse Rate 95 H Respiratory Rate 18 21 Blood Pressure 138/95 H 02 Sat by Pulse Oximetry 98 95 Lab Data Labs: Lab Results 02/10/24 13:20: Lipase 31 02/10/24 14:40: WBC 5.4, RBC 6.03, Hgb 18.0, Hct 55.3 H, MCV 91.7, MCH 29.8, MCHC 32.5, RDW 13.6, Plt Count 320, MPV 8.8, Neut % (Auto) 56.3, Lymph % (Auto) 31.5, [place] % (Auto) 8.6, Eos % (Auto) 2.1, Baso % (Auto) 1.5, Neut # (Auto) 3.1, Lymph # (Auto) 1.7, [place] # (Auto) 0.5, Eos # (Auto) 0.1, Baso # (Auto) 0.1, Sodium 138, Potassium 4.3, Chloride 108 H, Carbon Dioxide 26, Anion Gap 8.3, BUN 17, Creatinine 1.00, Estimated Creat Clear 101, Estimated GFR 76, Est GFR ( Amer) 92, Glucose 84, Calcium 8.8, Total Bilirubin 1.1, AST 50, ALT 47, Alkaline Phosphatase 110, Troponin I 0.02, Total Protein 8.1, Albumin 4.2, G lobulin 3.9 H, Albumin/Globulin Ratio 1.1 02/10/24 17:40: Troponin I < 0.01 02/10/24 14:40 02/10/24 14:40 Response Orders (Tests/Meds): ED MEDICATIONS Discontinued Medications Generic Name Dose Route Start Last Admin Trade Name Li PRN Reason Stop Dose Admin Aspirin 324 mg 02/10/24 15:06 02/10/24 15:14 Aspirin 81mg Chewable Tablet PO 02/10/24 15:07 324 mg ONCE ONE Administration Lactated Ringer's 1,000 mls @ 999 mls/hr 02/10/24 15:06 02/10/24 15:14 Lactated Ringer's 1000 Ml Bag IV 02/10/24 16:06 999 mls/hr .Q1H1M ONE Administration ORDERS Category Date Time Status CXR 2 view (NOT portable) [XR chest 2V] Stat Exams 02/10/24 14:46 Completed CBC w/Auto Diff [Complete Blood Count Auto Diff] Stat Lab 02/10/24 14:40 Completed CMP [Comprehensive Metabolic Panel] Stat Lab 02/10/24 14:40 Completed Lipase Stat Lab 02/10/24 13:20 Completed Trop I [Troponin I] Stat Lab 02/10/24 14:40 Completed Troponin I Q3H Lab 02/10/24 17:40 Completed Troponin I Q3H Lab 02/10/24 21:00 Ordered MDM Narrative Medical Decision Narrative: This is a 58-year-old male no relevant medical history not taking medications other than paroxetine daily presenting with concern for heart attack. Patient states that his father had a heart attack around his age many years ago. Patient states that his father was complaining of indigestion and abdominal pain and ended up with a heart attack. Patient states that his symptoms started today, 02/09 in the early a.m. He was not doing anything exertional. Started having tightness in his chest as well as burning between his shoulder blades. Intermittent, not constant, not exertional, positional. No shortness of breath, diaphoresis, nausea, vomiting, syncope, neurologic deficits, abdominal pain, relation to p.o. intake, or any other concerns. History obtained with patient. History was obtained via conversation with the patient. On arrival, patient hemodynamically stable, alert, oriented x4, appropriate, GCS 15, moving all extremities spontaneously, pupils equal and reactive to light. Full physical exam performed and significant for well-appearing male in no acute distress. Cardiopulmonary exam within normal limits. Normal S1-S2, no murmurs gallops rubs. Lungs are clear to auscultation bilaterally. No lower extremity edema, good capillary refill with no pallor or cyanosis. Differential includes PUD, gastritis, ACS, NH, pancreatitis, microvascular coronary artery disease, less likely aortic aneurysm, dissection, among others. Patient was given 324 mg aspirin, LR for symptomatic management and correction of underlying abnormalities. Patient placed on continuous cardiac monitoring and continuous pulse ox with initial blood pressure 138/95, heart rate 95, saturation 98% on room air. Independent interpretation of EKG shows sinus tachycardia [address] or T wave changes concerning for acute ischemia. [place], QRS, QT intervals within normal limits 163, 92, 404 respectively. [place] normal.. Workup independently interpreted and significant for nonactionable CBC or chemistry. Patient's initial troponin 0.02. On independent interpretation of imaging, no acute cardiopulmonary space disease. See radiology read for full review of final results. Heart score 1. On reevaluation, patient without symptoms at this time. Because symptoms started within a couple hours of him arriving to the ED, patient was placed in observation beginning at 2:30 PM in order to rule out evolving NH or delta troponin and determine need for admission versus home- going. The patient was provided serial exams, cardiac monitoring while awaiting results. Independent interpretation of results demonstrated undetectably low delta troponin. On reevaluation, patient still without symptoms. At this time, I feel patient is appropriate for discharge. Total observation time 4 hours. Because patient at baseline without signs or symptoms of clinical decompensation, deemed appropriate for discharge. Results were relayed to patient who voiced understanding and were agreeable to outpatient management and follow up. I discussed my clinical impression with patient and answered all questions. At this time, the evidence for any other entities in the differential is insufficient to warrant any further testing or ED observation. This was explained as well. Advisory was given that persistent or worsening symptoms require further evaluation. I confirmed the understanding of this discussion. [employer] Sales Beauty Advisor disclaimer Much of this encounter note is an electronic leasing property manager spoken language to printed text. Electronic leasing property manager of the spoken language may permit errors. Although I have reviewed the note, some errors may still exist.
[2024-02-10] MEDS: ASPIRIN 81MG CHEWABLE TABLET 324 MG PO (15:14)
[2024-02-10] MEDS: LACTATED RINGERS 1000ML 1,000 ML 999 ML IV (15:14)
[2024-02-10 15:15] LABS: Albumin Level 4.2 g/dl (3.5-5.0); Chloride 108 mmol/L (98-107); Sodium 138 mmol/L (136-145)
[2024-02-10 15:16] LABS: Potassium 4.3 mmoL/L (3.5-5.1)
[2024-02-10 15:18] LABS: Alanine Aminotransferase 47 U/L (12-78); Albumin/Globulin Ratio 1.1 (1.1-1.8); Alkaline Phosphatase 110 U/L (38-126); Anion Gap 8.3 mEq/L (5-15); Aspartate Amino Transferase 50 U/L (17-59); Bilirubin,Total 1.1 mg/dl (0.2-1.3); Blood Urea Nitrogen 17 mg/dl (9-20); Carbon Dioxide 26 mmol/L (22.0-30.0); Creatinine Clearance Estimated 101 mL/min (50-200); Estimated Glomerular Filt Rate 76 ml/min (>60); GFR (African American) 92 ML/MIN (>60); Globulin 3.9 g/dL (1.3-3.2); Total Protein,Serum 8.1 g/dl (6.3-8.2)
[2024-02-10 15:19] LABS: Calcium 8.8 mg/dl (8.4-10.2); Glucose 84 mg/dl (74-100)
[2024-02-10 15:25] LABS: Lipase 31 U/L (23-300)
[2024-02-10 15:34] LABS: Troponin I 0.02 ng/ml (0.00-0.034)
--- NOTE | 2024-02-10 16:03 | PC.NURSE ---
DR CLAY AT BEDSIDE TO UPDATE PT AND FAMILY
[2024-02-10 18:29] LABS: Troponin I < 0.01 ng/ml (0.00-0.034)
== END 2024-02-10 18:50 | disposition home or self-care (01) ==
PROVIDERS: Emergency Medicine; Emergency Provider Emergency Medicine
DX: R07.89 Other chest pain (principal); R00.0 Tachycardia, unspecified
CPT/HCPCS: 71046; 80053; 83690; 84484; 85025; 93005; 96360; 99284; J7120

== ENCOUNTER 2024-05-09 15:04 | Outpatient (CLI) | payer BC, SELFPAY ==
--- NOTE | 2024-05-09 15:05 | CT_ITS ---
FINAL REPORT TECHNIQUE: Axial imaging of the chest was obtained without contrast. Reformatted images were also obtained and reviewed.This study was performed with techniques to keep radiation doses as low as reasonably achievable, (ALARA). Individualized dose reduction technique using automated exposure control or adjustment of mA and/or kV according to the patient's size were employed. CLINICAL HISTORY: f/u 5mm nodule Right lateral lung COMPARISON: 03/23/2023 FINDINGS: There is moderate left coronary artery calcification. There is no axillary adenopathy. There is no hilar or mediastinal mass or adenopathy. Heart size is normal. There is no pericardial or pleural effusion. Limited images of the upper abdomen are unremarkable. A nodule is seen at the minor fissure measuring 7 mm on series 2 image 39. There is a 4 mm lateral right lower lobe nodule seen on series 2, image 48 also stable. There are several other, less than 5 mm nodules present. There is mild bibasilar atelectasis. IMPRESSION: Stable pulmonary nodules as above. Reviewed, Interpreted and Dictated by Coy Mejia III, MD Transcribed by Sonia Goldstein Authenticated and [facility]
== END 2024-05-09 23:59 | disposition home or self-care (01) ==
LOC: RAD 15:05
PROVIDERS: PCP Family Medicine; Visit Provider Family Medicine
DX: R91.1 Solitary pulmonary nodule (principal)
CPT/HCPCS: 71250

== ENCOUNTER 2025-01-15 08:30 | Outpatient (CLI) | payer BC, SELFPAY ==
--- NOTE | 2025-01-15 09:00 | CT_ITS ---
FINAL REPORT TECHNIQUE: Axial images were obtained through the chest without contrast. Coronal and sagittal images were obtained and reviewed. This study was performed with techniques to keep radiation doses as low as reasonably achievable, (ALARA). Individualized dose reduction techniques using automated exposure control or adjustment of mA and/or kV according to the patient's size were employed. CLINICAL HISTORY: f/u lung nodules COMPARISON: 05/09/2024 FINDINGS: There is no mediastinal mass or adenopathy. Moderate coronary artery calcifications are noted. The heart size is normal. There is no pericardial or pleural effusion. Limited images of the upper abdomen are unremarkable. Nodule in the right upper lobe measuring 6 mm on image 40 of series 2 appears similar to the prior study. A right lower lobe 4 mm nodule on image 51 of series 2 is stable. The nodule in the inferior left upper lobe measuring 3 mm on image 44 of series 2 is also stable. Other smaller nodules are also stable. IMPRESSION: Stable pulmonary nodules. Reviewed, Interpreted and Dictated by Gilmar Fields MD Transcribed by Alice Arriaga Authenticated and [facility]
== END 2025-01-15 23:59 | disposition home or self-care (01) ==
LOC: RAD 08:31
PROVIDERS: PCP Family Medicine; Visit Provider Family Medicine
DX: R91.8 Other nonspecific abnormal finding of lung field (principal)
CPT/HCPCS: 71250